=== PATIENT | female | born 2000 | race Two or more races ===

== ENCOUNTER 2024-06-01 08:51 | Emergency (ER) | payer MEDICAID, SELFPAY ==
[2024-06-01 09:18] VITALS: BP 128/85; PULSE 78; RESP 16; TEMP 36.8; O2SAT 100; BMI 30.4
--- NOTE | 2024-06-01 09:20 | XR_ITS ---
Examination: Complete OB ultrasound, less than 14 weeks, transabdominal Date and time of exam: June 01, 1999 2510 0 1:00 AM INDICATIONS: Vaginal bleeding and pelvic pain today Technique: Obstetrical ultrasound images less than 14 weeks performed via transabdominal imaging Findings: Uterus 9.1 cm Intrauterine gestational sac 1.4 cm correspondences 6 weeks 2 days gestational age No pole No cardiac activity Right ovary 4.7 cm arterial flow Left ovary 3.5 cm arterial flow IMPRESSION: Intrauterine gestational sac corresponding to 6 weeks 2 days gestational age No pole, no cardiac activity Recommend transvaginal pelvic sonography follow-up
--- NOTE | 2024-06-01 09:21 | PD.EDVAGBL ---
ED OB Contraction Preg RMI/HPI General Chief complaint: Vaginal Bleeding Stated complaint: Vaginal bleeding X 2 days, 7 weeks OB Time Seen by Provider: 06/01/24 09:23 Source: patient Arrival date/time: 06/01/24 08:51 24-year-old female with no known medical history presents to the emergency room with a chief complaint of vaginal spotting and bilateral pelvic pain x 2 days. Patient is currently 7 weeks . She is a G6, P3. Mode of arrival: ambulatory Limitations: no limitations Related Data Home Medications ?Medication ?Instructions ?Recorded ?Confirmed vit no.95-ferrous 1 tab PO QDAY 04/07/19 08/18/19 fumarate 28 mg-folic acid 800 mcg tablet () Allergies Allergy/AdvReac Type Severity Reaction Status Date / Time chicken derived Allergy Intermediate Hives Verified 12/22/21 15:35 Review of Systems Review of Systems Systems Reviewed: All systems reviewed, normal except as documented Constitutional Constitutional: Reports system reviewed and no additional complaints, except as documented, Denies fatigue, Denies fever(s), Denies headache(s) and Denies weakness Eyes Eyes: Reports system reviewed and no additional complaints, except as documented, Denies blurry vision and Denies change in vision ENT Ears, Nose, Mouth, and Throat: Reports system reviewed and no additional complaints, except as documented, Denies otalgia, Denies headache(s), Denies nasal congestion, Denies throat swelling and Denies vertigo Cardiovascular Cardiovascular: Reports system reviewed and no additional complaints, except as documented, Denies chest pain, Denies dyspnea and Denies dyspnea on exertion Respiratory Respiratory: Reports system reviewed and no additional complaints, except as documented, Denies chest congestion, Denies cough, Denies dyspnea, Denies dyspnea on exertion and Denies wheezing Gastrointestinal Gastrointestinal: Reports system reviewed and no additional complaints, except as documented, Denies abdominal pain, Denies cramping, Denies nausea and Denies vomiting Genitourinary Genitourinary: Reports system reviewed and no additional complaints, except as documented, Reports abnormal vaginal bleeding and Reports pelvic pain Musculoskeletal Musculoskeletal: Reports system reviewed and no additional complaints, except as documented and Denies back pain Integumentary/Breasts Skin/Breast: Reports system reviewed and no additional complaints, except as documented and Denies wounds Neurologic Neurologic: Reports system reviewed and no additional complaints, except as documented, Denies confusion, Denies headache(s), Denies lack of coordination, Denies vertigo and Denies weakness Psychiatric Psychiatric: Reports system reviewed and no additional complaints, except as documented, Denies anxiety, Denies confusion, Denies depression, Denies paranoia, Denies suicidal ideation and Denies tactile hallucinations Endocrine Endocrine: Reports system reviewed and no additional complaints, except as documented and Denies fatigue Hematologic/Lymphatic Hematologic/Lymphatic: Reports system reviewed and no additional complaints, except as documented and Denies lymphadenopathy Allergic/Immunologic Allergic/Immunologic: Reports system reviewed and no additional complaints, except as documented, Denies throat swelling, Denies urticaria and Denies wheezing Past Medical History Past Medical History NEUROLOGIC: Negative Neurological Disorders CARDIAC: Negative Cardiac Disorders or Congestive Heart Failure RESPIRATORY: Negative Chronic Obstructive Pulmonary Disease (COPD) GASTROINTESTINAL: Negative Gastrointestinal Disorders, Hepatitis or Colorectal Cancer GENITOURINARY: Negative Genitourinary Disorders, Renal Disease or Prostate Cancer REPRODUCTIVE: Positive Previous Pregnancies (x2 PREVIOUS PREGNANCIES); Negative Breast Cancer, Endometriosis, Genital Herpes, Gonorrhea, Pelvic Inflammatory Disease, Syphilis, Testicular Cancer or Uterine Prolapse MUSCULOSKELETAL: Negative Musculoskeletal Disorders or Bone Cancer ENDOCRINE: Negative Endocrine Disorders, Diabetes Mellitus Type 1 or Diabetes Mellitus Type 2 HEMATOLOGIC: Negative Blood Disorders PSYCHO/SOCIAL: Positive Depression and Anxiety; Negative Psychiatric Problems, Schizophrenia, Recreational Drug Use, Self-Mutilation, Attention Deficit Disorder, Attention Deficit Hyperactivity Disorder, Depression, Post Traumatic Stress Disorder or Eating Disorder OTHER HISTORY: Negative Hospitalization, Autoimmune Disease, Down Syndrome, Autism, Developmental Delay, Shingles, Falls, Blood Transfusions, Blood Transfusion Reaction, Anesthesia Reactions, Organ Transplant, Chemotherapy, Radiation Therapy, Hyperbaric Therapy, MRSA, VRSA, Vancomycin-Resistant Enterococci, Human Immunodeficiency Virus (HIV), Chicken Pox, Measles, Mumps, Rubella (Chinese Measles), Pertussis, Clostridium Difficile, Cancer, Breast Cancer, Cervical Cancer, Colorectal Cancer, Lung Cancer, Ovarian Cancer, Prostate Cancer or Testicular Cancer Family History FAMILY HISTORY: Negative Family Psychiatric Problems, Family Respiratory Disorders, Family Cardiac Disorders, Family Gastrointestinal Problems, Family Cancer, Family Surgery or Family Anesthesia Reaction Surgical History SURGICAL: Negative Cardiac Surgery, Section or Organ Transplant Social History SMOKING STATUS: Never smoker SUBSTANCE USE: does not use ED Exam General Limitations: Present no limitations General appearance: Present alert and in no apparent distress Head Head exam: Present atraumatic Eye Eye exam: Present normal appearance, PERRL and EOMI ENT ENT exam: Present normal exam, normal oropharynx and mucous membranes moist Neck Neck exam: Present normal inspection, full ROM and trachea midline Chest Chest inspection: Present normal inspection and symmetric chest wall rise Respiratory Respiratory exam: Present normal lung sounds bilaterally Cardiovascular Cardiovascular exam: Present regular rate, normal rhythm and normal heart sounds Abdominal Exam Abdominal exam: Present soft, tenderness and normal bowel sounds; Absent Ho's sign or tenderness at McBurney's Point Abdominal tenderness: Present RLQ, LLQ and mild Extremities Exam Extremities exam: Present normal inspection and full ROM Back Exam Back exam: Present normal inspection and full ROM Neurological Exam Neurological exam: Present alert, oriented X3 and CN II-XII intact Psychiatric Psychiatric exam: Present normal affect and normal mood Skin Skin exam: Present warm, dry, intact and normal color Course Quality Measures none Orders Category Date Time Status US OB <= 14 weeks fetus Stat Exams 06/01/24 09:20 Completed ABO/RH Type Stat Lab 06/01/24 09:49 Completed Beta HCG,Quantitative Stat Lab 06/01/24 09:49 Completed CBC Stat Lab 06/01/24 09:49 Completed CMP [Comprehensive Metabolic Panel] Stat Lab 06/01/24 09:49 Completed UA [Urinalysis] Stat Lab 06/01/24 10:11 Completed Vital Signs Vital signs: Vital Signs Temperature 98.2 F 06/01/24 09:18 Pulse Rate 78 06/01/24 09:18 Respiratory Rate 16 06/01/24 09:18 Blood Pressure 128/85 H 06/01/24 09:18 Pulse Oximetry (%) 100 06/01/24 09:18 Oxygen Delivery Method Room Air 06/01/24 09:18 O2 saturation 100% within normal limits Vaginal Bleeding MDM Narrative MDM Narrative: 24-year-old female with no known medical history presents to the emergency room with a chief complaint of vaginal spotting and bilateral pelvic pain x 2 days. Patient is currently 7 weeks . She is a G6, P3. Patient is hemodynamically stable and in no apparent distress. Physical examination shows 2 out of 10 bilateral pelvic pain, cramping. Patient states her bleeding is only when she wipes, and there is a brownish color. There are no clots. Patient states she has been unable to see her LOCAL [employer] and states her first appointment is in 3 weeks. hCG levels are 29,184. Ultrasound was completed and shows a gestational sac corresponding to 6 weeks and 2 days. There was no tone and no cardiac activity present. Our radiologist recommends repeat transvaginal pelvic sonography in the next 48 to 72 hours. Patient was discharged and educated to follow-up with her LOCAL [employer]. Patient was educated that she if she is unable to get an appointment with her LOCAL [employer] to return to the emergency room for repeat blood work and a repeat ultrasound. Patient data External records reviewed:: [facility] previous records Clinical information provided by:: patient Social determinants that could affect healthcare access:: none Patient has the following chronic illnesses:: No chronic illness How is presenting disease/condition affected by chronic disease/condition?: no chronic disease Evaluation data The following diagnostics were reviewed and interpreted by me:: lab results and radiology exam(s) Lab and/or radiology exams considered but not ordered:: Labs and radiology exams considered and ordered Interpretation Summary: Ultrasound OB-Findings: Uterus 9.1 cm Intrauterine gestational sac 1.4 cm correspondences 6 weeks 2 days gestational age No pole No cardiac activity Right ovary 4.7 cm arterial flow Left ovary 3.5 cm arterial flow IMPRESSION: Intrauterine gestational sac corresponding to 6 weeks 2 days gestational age No pole, no cardiac activity Recommend transvaginal pelvic sonography follow-up Medications / Prescriptions Medications or Prescriptions considered but not ordered:: No medication given Medication administrations:: No medication given Consultations Consultation(s) initiated? (list below): No Diagnosis Vaginal Bleeding Differential Diagnosis: missed , threatened , dysfunctional uterine bleeding, incomplete , ectopic without intrauterine , vaginal bleeding and other (Spontaneous /vaginal bleeding/ectopic ) Most likely diagnosis given after review of the tests above:: Threatened Admission Indicated Admission indicated?: not indicated Admission Request Was there a request for admission?: No Disposition Plan Disposition Plan: Discharge Discharge Attestation Discharge Attestation: The patient and all family members were given an opportunity to ask questions and understood the discharge instructions. Discharge instructions specifically effects, indications for sooner follow up or return to the emergency department, and the expected course of current diagnosis. Patient condition: Stable Discharge Plan Plan Patient Disposition: HOME (Self Care) Disposition Comment: Stable Prescriptions/Referrals Prescriptions/Med Rec: No Action PNV cmb#95-ferrous fumarate-FA [] 28 mg iron- 800 mcg Tablet 1 tab PO QDAY Referrals: No Primary/Family,Physician [Primary Care Provider] - In 1 week Problem List Clinical Impression: Vaginal bleeding affecting early Patient/Caregiver Discharge Instructions Education Materials: Bleeding During Early Additional Instructions: Please follow-up with your LOCAL [employer] in the next 24 to 48 hours. Our radiologist recommends short-term follow-up in the next 48 to 72 hours. For any evidence of worsening signs or symptoms return to the emergency room immediately Print Language: Moldovan Stand Alone Forms: Marie Award Info., Patient Portal Info Letter PA/CHERRY GROWER Supervising Physician PA/ADRYAN Supervising Physician: Dr. JACOBS
[2024-06-01 10:09] LABS: Basophils % (Auto) 0 % (0-2.5); Eosinophils # (Auto) 0.2 Thou/mm3 (0.0-0.5); Eosinophils % (Auto) 2 % (0-10); Hemoglobin 13.1 g/dL (12.0-16.0); Immature Granulocytes % (Auto) 0 % (0-0); Immature Granulocytes Auto 0.03 Thou/mm3 (0.00-0.00); Lymphocytes # (Auto) 1.9 Thou/mm3 (1.0-4.8); Lymphocytes % (Auto) 22 % (10-50); Mean Corpuscular HGB Conc 33.6 g/dl (31.0-37.0); Mean Corpuscular Volume 89 fL (80-100); Monocytes # (Auto) 0.5 Thou/mm3 (0.0-0.8); Monocytes % (Auto) 5 % (0-12); Neutrophils # (Auto) 6.2 Thou/mm3 (1.8-7.7); Neutrophils % (Auto) 71 % (37-80); Nucleated Red Blood Cell % 0 /100 WBC (0); Platelet Count 291 Thou/mm3 (140-440); RDW Standard Deviation 43.2 fL (36.4-46.3); Red Blood Count 4.36 Miln/mm3 (4.00-5.20); White Blood Count 8.8 Thou/mm3 (3.6-11.0)
[2024-06-01 10:19] LABS: Collection Type, Urine Clean Catch
[2024-06-01 10:28] LABS: Bilirubin,Urine Negative (Negative); Blood,Urine 2+ (Negative); Clarity,Urine Clear (Clear/Hazy); Color,Urine Lt-Yellow (Lt Yel-Yel); Glucose, Urine Negative (Negative); Ketones,Urine Negative (Negative); Leukocyte Esterase,Urine Positive (Negative); Nitrite,Urine Negative (Negative); PH,Urine 6.5 (5.0-7.0); Protein,Urine Negative (Neg - Trace); RBC,Urine 3 /hpf (0-3); Specific Gravity,Urine 1.025 (1.001-1.035); Squamous Epithelial Cell,Urine 9 /hpf (0-5); Urobilinogen,Urine Negative mg/dL (0.0-1.0); WBC,Urine 3 /hpf (0-5)
[2024-06-01 10:31] LABS: Alanine Aminotransferase 17 U/L (10-49); Albumin, Serum 4.6 gm/dL (3.5-5.0); Albumin/Globulin Ratio 1.6 (1.2-2.2); Alkaline Phosphatase 74 U/L (46-116); Anion Gap 7 (7-16); Aspartate Amino Transferase 16 U/L (0-34); BUN/Creatinine Ratio 18 Ratio (12-20); Bilirubin,Total 0.3 mg/dL (0.3-1.2); Blood Urea Nitrogen 11 mg/dL (9-23); Chloride 103 mMol/L (98-107); Creatinine (Component) 0.6 mg/dL (0.6-1.3); Estimated Creatinine Clearance 145.7 mL/min (>60); Globulin 2.8 gm/dL (2.3-3.5); Glucose 98 mg/dL (74-106); Osmolality,Calculated 271 (275-295); Potassium 4.1 mMol/L (3.4-5.1); Sodium 136 mMol/L (136-145); Total Protein 7.4 gm/dL (5.7-8.2); eGFR > 60 See Note
[2024-06-01 11:04] LABS: Beta HCG,Quantitative 29184 mIU/mL (<5.0)
== END 2024-06-01 11:55 | disposition home or self-care (01) ==
PROVIDERS: Nurse Practitioner Family; Emergency Provider Emergency Medicine
DX: O20.9 Hemorrhage in early pregnancy, unspecified (principal); Z3A.01 Less than 8 weeks gestation of pregnancy
CPT/HCPCS: 36415; 76801; 80053; 81001; 84702; 85025; 86900; 86901; 99284

== ENCOUNTER 2024-06-22 09:15 | Emergency (ER) | payer MEDICAID, SELFPAY ==
[2024-06-22 09:33] VITALS: BP 119/76; PULSE 78; RESP 16; TEMP 36.8; O2SAT 98; BMI 30.2
--- NOTE | 2024-06-22 09:39 | XR_ITS ---
Examination: Complete OB ultrasound, less than 14 weeks, transabdominal Date and time of exam: June 22, 2019 5:10 AM Indications: Pelvic pain and vaginal bleeding beginning yesterday Technique: Obstetrical ultrasound images less than 14 weeks performed via transabdominal imaging Findings: A normal shaped single intrauterine gestation is present in the uterus. pole 2.5 cm corresponds to 9 weeks 1 day gestational age Cardiac motion 155 BPM Adjacent subchorionic hemorrhage 19 x 7 mm Ultrasonographic survey of visible and placental structures unremarkable. Amniotic fluid volume appears appropriate for this estimated gestational age. Right ovary 3.2 cm arterial flow Left ovary 3.1 cm arterial flow. Impression: Viable intrauterine gestation 9 weeks 1 day Recommend short-term follow-up pelvic sonography given the subchorionic hemorrhage
--- NOTE | 2024-06-22 09:39 | PD.EDVAGBL ---
ED OB Contraction Preg RMI/HPI General Chief complaint: Vaginal Bleeding Stated complaint: VAGINAL DISCHARGE WITH BLOOD AT 9WKS PREG; GRAV6 Time Seen by Provider: 06/22/24 09:41 Source: patient Arrival date/time: 06/22/24 09:15 24-year-old female with no known medical history presents to the emergency room with a chief complaint of vaginal spotting and clear vaginal discharge x 1 day. Patient is currently 9 weeks . She is a G6, P3. Patient states that symptoms began after having sexual intercourse with her last night Mode of arrival: ambulatory Limitations: no limitations Related Data Home Medications ?Medication ?Instructions ?Recorded ?Confirmed vit no.95-ferrous 1 tab PO QDAY 04/07/19 08/18/19 fumarate 28 mg-folic acid 800 mcg tablet () Previous Rx's ?Medication ?Instructions ?Recorded cephalexin 500 mg capsule 500 mg PO BID 7 days #14 caps 06/22/24 Allergies Allergy/AdvReac Type Severity Reaction Status Date / Time chicken derived Allergy Intermediate Hives Verified 06/22/24 09:17 Review of Systems Review of Systems Systems Reviewed: All systems reviewed, normal except as documented Constitutional Constitutional: Reports system reviewed and no additional complaints, except as documented, Denies fatigue, Denies fever(s), Denies headache(s) and Denies weakness Eyes Eyes: Reports system reviewed and no additional complaints, except as documented, Denies blurry vision and Denies change in vision ENT Ears, Nose, Mouth, and Throat: Reports system reviewed and no additional complaints, except as documented, Denies otalgia, Denies headache(s), Denies nasal congestion, Denies throat swelling and Denies vertigo Cardiovascular Cardiovascular: Reports system reviewed and no additional complaints, except as documented, Denies chest pain, Denies dyspnea and Denies dyspnea on exertion Respiratory Respiratory: Reports system reviewed and no additional complaints, except as documented, Denies chest congestion, Denies cough, Denies dyspnea, Denies dyspnea on exertion and Denies wheezing Gastrointestinal Gastrointestinal: Reports system reviewed and no additional complaints, except as documented, Denies abdominal pain, Denies cramping, Denies nausea and Denies vomiting Genitourinary Genitourinary: Reports system reviewed and no additional complaints, except as documented, Reports abnormal vaginal bleeding, Reports pelvic pain and Reports vaginal discharge Musculoskeletal Musculoskeletal: Reports system reviewed and no additional complaints, except as documented and Denies back pain Integumentary/Breasts Skin/Breast: Reports system reviewed and no additional complaints, except as documented and Denies wounds Neurologic Neurologic: Reports system reviewed and no additional complaints, except as documented, Denies confusion, Denies headache(s), Denies lack of coordination, Denies vertigo and Denies weakness Psychiatric Psychiatric: Reports system reviewed and no additional complaints, except as documented, Denies anxiety, Denies confusion, Denies depression, Denies paranoia, Denies suicidal ideation and Denies tactile hallucinations Endocrine Endocrine: Reports system reviewed and no additional complaints, except as documented and Denies fatigue Hematologic/Lymphatic Hematologic/Lymphatic: Reports system reviewed and no additional complaints, except as documented and Denies lymphadenopathy Allergic/Immunologic Allergic/Immunologic: Reports system reviewed and no additional complaints, except as documented, Denies throat swelling, Denies urticaria and Denies wheezing Past Medical History Past Medical History NEUROLOGIC: Negative Neurological Disorders CARDIAC: Negative Cardiac Disorders or Congestive Heart Failure RESPIRATORY: Negative Chronic Obstructive Pulmonary Disease (COPD) GASTROINTESTINAL: Negative Gastrointestinal Disorders, Hepatitis or Colorectal Cancer GENITOURINARY: Negative Genitourinary Disorders, Renal Disease or Prostate Cancer REPRODUCTIVE: Positive Previous Pregnancies (x2 PREVIOUS PREGNANCIES); Negative Breast Cancer, Endometriosis, Genital Herpes, Gonorrhea, Pelvic Inflammatory Disease, Syphilis, Testicular Cancer or Uterine Prolapse MUSCULOSKELETAL: Negative Musculoskeletal Disorders or Bone Cancer ENDOCRINE: Negative Endocrine Disorders, Diabetes Mellitus Type 1 or Diabetes Mellitus Type 2 HEMATOLOGIC: Negative Blood Disorders PSYCHO/SOCIAL: Positive Depression and Anxiety; Negative Psychiatric Problems, Schizophrenia, Recreational Drug Use, Self-Mutilation, Attention Deficit Disorder, Attention Deficit Hyperactivity Disorder, Depression, Post Traumatic Stress Disorder or Eating Disorder OTHER HISTORY: Negative Hospitalization, Autoimmune Disease, Down Syndrome, Autism, Developmental Delay, Shingles, Falls, Blood Transfusions, Blood Transfusion Reaction, Anesthesia Reactions, Organ Transplant, Chemotherapy, Radiation Therapy, Hyperbaric Therapy, MRSA, VRSA, Vancomycin-Resistant Enterococci, Human Immunodeficiency Virus (HIV), Chicken Pox, Measles, Mumps, Rubella (Polish Measles), Pertussis, Clostridium Difficile, Cancer, Breast Cancer, Cervical Cancer, Colorectal Cancer, Lung Cancer, Ovarian Cancer, Prostate Cancer or Testicular Cancer Family History FAMILY HISTORY: Negative Family Psychiatric Problems, Family Respiratory Disorders, Family Cardiac Disorders, Family Gastrointestinal Problems, Family Cancer, Family Surgery or Family Anesthesia Reaction Surgical History SURGICAL: Negative Cardiac Surgery, Section or Organ Transplant Social History SMOKING STATUS: Never smoker SUBSTANCE USE: does not use ED Exam General Limitations: Present no limitations General appearance: Present alert and in no apparent distress Head Head exam: Present atraumatic Eye Eye exam: Present normal appearance, PERRL and EOMI ENT ENT exam: Present normal exam, normal oropharynx and mucous membranes moist Neck Neck exam: Present normal inspection, full ROM and trachea midline Chest Chest inspection: Present normal inspection and symmetric chest wall rise Respiratory Respiratory exam: Present normal lung sounds bilaterally Cardiovascular Cardiovascular exam: Present regular rate, normal rhythm and normal heart sounds Abdominal Exam Abdominal exam: Present soft, tenderness and normal bowel sounds Abdominal tenderness: Present RLQ, LLQ and mild Extremities Exam Extremities exam: Present normal inspection and full ROM Back Exam Back exam: Present normal inspection and full ROM Neurological Exam Neurological exam: Present alert, oriented X3 and CN II-XII intact Psychiatric Psychiatric exam: Present normal affect and normal mood Skin Skin exam: Present warm, dry, intact and normal color Course Quality Measures none Orders Category Date Time Status US OB <= 14 weeks fetus Stat Exams 06/22/24 09:39 Completed ABO/RH Type Stat Lab 06/22/24 11:16 Completed Beta HCG,Quantitative Stat Lab 06/22/24 11:16 Completed CBC Stat Lab 06/22/24 11:16 Completed CMP [Comprehensive Metabolic Panel] Stat Lab 06/22/24 11:16 Completed UA [Urinalysis] Stat Lab 06/22/24 10:22 Completed Vital Signs Vital signs: Vital Signs Temperature 98.3 F 06/22/24 09:33 Pulse Rate 78 06/22/24 09:33 Respiratory Rate 16 06/22/24 09:33 Blood Pressure 119/76 06/22/24 09:33 Pulse Oximetry (%) 98 06/22/24 09:33 Oxygen Delivery Method Room Air 06/22/24 09:33 O2 saturation 98% within normal limits Vaginal Bleeding MDM Narrative MDM Narrative: 24-year-old female with no known medical history presents to the emergency room with a chief complaint of vaginal spotting and clear vaginal discharge x 1 day. Patient is currently 9 weeks . She is a G6, P3. Patient states that symptoms began after having sexual intercourse with her last night Patient is hemodynamically stable and in no apparent distress Physical examination shows a soft nontender abdomen there is no pelvic pain bilaterally. Patient is complaining of vaginal spotting when she wipes and clear vaginal discharge. Ultrasound OB was completed and shows a subchorionic bleed with a viable at 9 weeks 1 day and heart tones at 155 bpm Patient was educated to follow-up with her MATH INSTRUCTOR in the next 24 to 48 hours and return to the emergency room for any evidence of worsening signs or symptoms Patient data External records reviewed:: [facility] previous records Clinical information provided by:: patient Social determinants that could affect healthcare access:: none Patient has the following chronic illnesses:: No chronic illness How is presenting disease/condition affected by chronic disease/condition?: no chronic disease Evaluation data The following diagnostics were reviewed and interpreted by me:: lab results and radiology exam(s) Lab and/or radiology exams considered but not ordered:: Labs and radiology exams considered and ordered Interpretation Summary: Ultrasound OB-Findings: A normal shaped single intrauterine gestation is present in the uterus. pole 2.5 cm corresponds to 9 weeks 1 day gestational age Cardiac motion 155 BPM Adjacent subchorionic hemorrhage 19 x 7 mm Ultrasonographic survey of visible and placental structures unremarkable. Amniotic fluid volume appears appropriate for this estimated gestational age. Right ovary 3.2 cm arterial flow Left ovary 3.1 cm arterial flow. Impression: Viable intrauterine gestation 9 weeks 1 day Recommend short-term follow-up pelvic sonography given the subchorionic hemorrhage Medications / Prescriptions Medications or Prescriptions considered but not ordered:: No medication given Medication administrations:: No medication given Consultations Consultation(s) initiated? (list below): No Diagnosis Vaginal Bleeding Differential Diagnosis: threatened , dysfunctional uterine bleeding, ectopic without intrauterine , vaginal bleeding and other (Subchorionic hemorrhage) Most likely diagnosis given after review of the tests above:: Subchorionic hemorrhage Admission Indicated Admission indicated?: not indicated Admission Request Was there a request for admission?: No Disposition Plan Disposition Plan: Discharge Discharge Attestation Discharge Attestation: The patient and all family members were given an opportunity to ask questions and understood the discharge instructions. Discharge instructions specifically effects, indications for sooner follow up or return to the emergency department, and the expected course of current diagnosis. Patient condition: Stable Discharge Plan Plan Patient Disposition: HOME (Self Care) Disposition Comment: Stable Prescriptions/Referrals Prescriptions/Med Rec: New cephalexin 500 mg capsule 500 mg PO BID 7 Days Qty: 14 0RF No Action PNV cmb#95-ferrous fumarate-FA [] 28 mg iron- 800 mcg Tablet 1 tab PO QDAY Referrals: No Primary/Family,Physician [Primary Care Provider] - In 1 week Problem List Clinical Impression: Subchorionic hemorrhage in first trimester, Urinary tract infection Patient/Caregiver Discharge Instructions Education Materials: Bleeding During Early , ED CYSTITIS Female Adult Additional Instructions: Please follow-up with your primary care provider or your MATH INSTRUCTOR in the next 24 to 48 hours. The ultrasound that was completed shows a subchorionic bleed At this time the ultrasound shows a viable at 9 weeks and 1 day with heart tones at 160 bpm For any evidence of worsening signs or symptoms please return to the emergency room immediately Print Language: Emirati Stand Alone Forms: Marie Award Info., Patient Portal Info Letter PA/LOADING UNIT OPERATOR POWDER CHARGING Supervising Physician PA/ADRYAN Supervising Physician: Dr. Eduardo
[2024-06-22 10:39] LABS: Collection Type, Urine Clean Catch
[2024-06-22 10:52] LABS: Bacteria,Urine 1+; Bilirubin,Urine Negative (Negative); Blood,Urine 1+ (Negative); Clarity,Urine Turbid (Clear/Hazy); Color,Urine Yellow (Lt Yel-Yel); Glucose, Urine Negative (Negative); Ketones,Urine Negative (Negative); Leukocyte Esterase,Urine Positive (Negative); Nitrite,Urine Negative (Negative); Protein,Urine Trace (Neg - Trace); RBC,Urine 4 /hpf (0-3); Specific Gravity,Urine 1.029 (1.001-1.035); Squamous Epithelial Cell,Urine 9 /hpf (0-5); Urobilinogen,Urine Negative mg/dL (0.0-1.0); WBC,Urine 34 /hpf (0-5)
[2024-06-22 11:39] LABS: Basophils % (Auto) 0 % (0-2.5); Eosinophils # (Auto) 0.2 Thou/mm3 (0.0-0.5); Eosinophils % (Auto) 2 % (0-10); Hematocrit 38.4 % (36.0-46.0); Hemoglobin 13.1 g/dL (12.0-16.0); Immature Granulocytes % (Auto) 0 % (0-0); Immature Granulocytes Auto 0.02 Thou/mm3 (0.00-0.00); Lymphocytes % (Auto) 25 % (10-50); Mean Corpuscular HGB Conc 34.1 g/dl (31.0-37.0); Mean Corpuscular Hemoglobin 30.2 pg (25.0-35.0); Mean Corpuscular Volume 89 fL (80-100); Monocytes # (Auto) 0.3 Thou/mm3 (0.0-0.8); Monocytes % (Auto) 4 % (0-12); Neutrophils # (Auto) 5.6 Thou/mm3 (1.8-7.7); Neutrophils % (Auto) 69 % (37-80); Nucleated Red Blood Cell % 0 /100 WBC (0); Platelet Count 250 Thou/mm3 (140-440); Red Blood Count 4.34 Miln/mm3 (4.00-5.20); White Blood Count 8.1 Thou/mm3 (3.6-11.0)
[2024-06-22 12:05] LABS: Alanine Aminotransferase 13 U/L (10-49); Albumin, Serum 4.4 gm/dL (3.5-5.0); Albumin/Globulin Ratio 1.6 (1.2-2.2); Alkaline Phosphatase 62 U/L (46-116); Anion Gap 8 (7-16); Aspartate Amino Transferase 17 U/L (0-34); BUN/Creatinine Ratio 10 Ratio (12-20); Bilirubin,Total 0.4 mg/dL (0.3-1.2); Blood Urea Nitrogen 6 mg/dL (9-23); Calcium 9.4 mg/dL (8.3-10.6); Calcium (Corrected) 9.4 mg/dL (8.5-10.1); Chloride 104 mMol/L (98-107); Creatinine (Component) 0.6 mg/dL (0.6-1.3); Estimated Creatinine Clearance 145.4 mL/min (>60); Globulin 2.7 gm/dL (2.3-3.5); Glucose 89 mg/dL (74-106); Osmolality,Calculated 270 (275-295); Potassium 4.1 mMol/L (3.4-5.1); Sodium 137 mMol/L (136-145); Total Protein 7.1 gm/dL (5.7-8.2); eGFR > 60 See Note
[2024-06-22 12:44] LABS: Beta HCG,Quantitative 95882 mIU/mL (<5.0)
== END 2024-06-22 13:31 | disposition home or self-care (01) ==
PROVIDERS: Nurse Practitioner Family; Emergency Provider Emergency Medicine
DX: O20.8 Other hemorrhage in early pregnancy (principal); Z3A.09 9 weeks gestation of pregnancy; O23.41 Unspecified infection of urinary tract in pregnancy, first trimester; N39.0 Urinary tract infection, site not specified
CPT/HCPCS: 36415; 76801; 80053; 81001; 84702; 85025; 86900; 86901; 99284

== ENCOUNTER 2024-07-25 23:34 | Emergency (ER) | payer MEDICAID, SELFPAY ==
[2024-07-25 23:35] VITALS: BMI 30.4
[2024-07-25 23:50] VITALS: BP 119/80; PULSE 77; RESP 18; TEMP 36.8; O2SAT 97
--- NOTE | 2024-07-26 00:05 | XR_ITS ---
Examination: Complete OB ultrasound greater than 14 weeks Date and time of exam: July 26, 2024 0030 hours INDICATIONS: Pelvic cramping and vaginal bleeding beginning one hour ago Findings: Viable intrauterine single fetus with single amniotic sac presentation breech Cardiac motion 133 BPM Placenta posterior grade 1 no abruption Umbilical cord insertion not seen Amniotic fluid index 5.8 cm Cervix 2.9 cm closed Right ovary 2.6 cm arterial flow Left ovary 2.6 cm arterial flow Composite estimated gestational age based on BPD, head circumference, abdominal circumference, femur length is 14 weeks 2 days Estimated weight 92.6 g. Survey of intracranial anatomy, spinal anatomy, abdominal anatomy, four-chamber heart performed with no abnormalities identified. Impression: Viable intrauterine gestation breech presentation.
[2024-07-26 00:31] LABS: Collection Type, Urine Clean Catch
[2024-07-26 00:33] LABS: Basophils % (Auto) 0 % (0-2.5); Eosinophils # (Auto) 0.3 Thou/mm3 (0.0-0.5); Eosinophils % (Auto) 2 % (0-10); Hematocrit 35.9 % (36.0-46.0); Hemoglobin 12.7 g/dL (12.0-16.0); Immature Granulocytes % (Auto) 0 % (0-0); Immature Granulocytes Auto 0.04 Thou/mm3 (0.00-0.00); Lymphocytes # (Auto) 3.2 Thou/mm3 (1.0-4.8); Lymphocytes % (Auto) 26 % (10-50); Mean Corpuscular HGB Conc 35.4 g/dl (31.0-37.0); Mean Corpuscular Hemoglobin 30.9 pg (25.0-35.0); Mean Corpuscular Volume 87 fL (80-100); Monocytes # (Auto) 0.6 Thou/mm3 (0.0-0.8); Monocytes % (Auto) 5 % (0-12); Neutrophils % (Auto) 66 % (37-80); Nucleated Red Blood Cell % 0 /100 WBC (0); Platelet Count 251 Thou/mm3 (140-440); RDW Standard Deviation 39.8 fL (36.4-46.3); Red Blood Count 4.11 Miln/mm3 (4.00-5.20); White Blood Count 12.1 Thou/mm3 (3.6-11.0)
--- NOTE | 2024-07-26 00:57 | PD.EDVAGBL ---
ED OB Contraction Preg RMI/HPI General Chief complaint: Urogenital-Female Stated complaint: 14WEEKS PREG, BLEEDING Time Seen by Provider: 07/26/24 00:04 Arrival date/time: 07/25/24 23:34 24F at approximately 14 weeks and with no significant PMH presents to ED with 2 days of vaginal spotting and pelvic cramping. Patient was here recently for this with diagnosis of subchorionic hemorrhage. Patient knows she is RH- and she got a Rhogam shot 1 month ago. Limitations: no limitations Related Data Home Medications ?Medication ?Instructions ?Recorded ?Confirmed vit no.95-ferrous 1 tab PO QDAY 04/07/19 08/18/19 fumarate 28 mg-folic acid 800 mcg tablet () Allergies Allergy/AdvReac Type Severity Reaction Status Date / Time chicken derived Allergy Intermediate Hives Verified 06/22/24 09:17 Review of Systems Review of Systems Systems Reviewed: All systems reviewed, normal except as documented Constitutional Constitutional: Reports system reviewed and no additional complaints, except as documented, Denies fever(s) and Denies headache(s) ENT Ears, Nose, Mouth, and Throat: Denies disequilibrium and Denies headache(s) Cardiovascular Cardiovascular: Reports system reviewed and no additional complaints, except as documented, Denies chest pain and Denies dyspnea Respiratory Respiratory: Reports system reviewed and no additional complaints, except as documented, Denies cough and Denies dyspnea Gastrointestinal Gastrointestinal: Reports system reviewed and no additional complaints, except as documented, Denies abdominal pain, Denies nausea and Denies vomiting Genitourinary Genitourinary: Reports as per HPI, Reports abnormal vaginal bleeding and Reports pelvic pain Neurologic Neurologic: Reports system reviewed and no additional complaints, except as documented, Denies confusion, Denies disequilibrium and Denies headache(s) Psychiatric Psychiatric: Denies confusion Past Medical History Past Medical History NEUROLOGIC: Negative Neurological Disorders CARDIAC: Negative Cardiac Disorders or Congestive Heart Failure RESPIRATORY: Negative Chronic Obstructive Pulmonary Disease (COPD) GASTROINTESTINAL: Negative Gastrointestinal Disorders, Hepatitis or Colorectal Cancer GENITOURINARY: Negative Genitourinary Disorders, Renal Disease or Prostate Cancer REPRODUCTIVE: Positive Previous Pregnancies (x2 PREVIOUS PREGNANCIES); Negative Breast Cancer, Endometriosis, Genital Herpes, Gonorrhea, Pelvic Inflammatory Disease, Syphilis, Testicular Cancer or Uterine Prolapse MUSCULOSKELETAL: Negative Musculoskeletal Disorders or Bone Cancer ENDOCRINE: Negative Endocrine Disorders, Diabetes Mellitus Type 1 or Diabetes Mellitus Type 2 HEMATOLOGIC: Negative Blood Disorders PSYCHO/SOCIAL: Positive Depression and Anxiety; Negative Psychiatric Problems, Schizophrenia, Recreational Drug Use, Self-Mutilation, Attention Deficit Disorder, Attention Deficit Hyperactivity Disorder, Depression, Post Traumatic Stress Disorder or Eating Disorder OTHER HISTORY: Negative Hospitalization, Autoimmune Disease, Down Syndrome, Autism, Developmental Delay, Shingles, Falls, Blood Transfusions, Blood Transfusion Reaction, Anesthesia Reactions, Organ Transplant, Chemotherapy, Radiation Therapy, Hyperbaric Therapy, MRSA, VRSA, Vancomycin-Resistant Enterococci, Human Immunodeficiency Virus (HIV), Chicken Pox, Measles, Mumps, Rubella ([place] Measles), Pertussis, Clostridium Difficile, Cancer, Breast Cancer, Cervical Cancer, Colorectal Cancer, Lung Cancer, Ovarian Cancer, Prostate Cancer or Testicular Cancer Family History FAMILY HISTORY: Negative Family Psychiatric Problems, Family Respiratory Disorders, Family Cardiac Disorders, Family Gastrointestinal Problems, Family Cancer, Family Surgery or Family Anesthesia Reaction Surgical History SURGICAL: Negative Cardiac Surgery, Section or Organ Transplant Social History SMOKING STATUS: Never smoker SUBSTANCE USE: does not use ED Exam General Limitations: Present no limitations General appearance: Present alert and in no apparent distress Head Head exam: Present atraumatic Eye Eye exam: Present normal appearance, PERRL and EOMI ENT ENT exam: Present normal exam, normal oropharynx and mucous membranes moist Neck Neck exam: Present normal inspection, full ROM and trachea midline Chest Chest inspection: Present normal inspection and symmetric chest wall rise Respiratory Respiratory exam: Present normal lung sounds bilaterally Cardiovascular Cardiovascular exam: Present regular rate, normal rhythm and normal heart sounds Abdominal Exam Abdominal exam: Present soft and normal bowel sounds Extremities Exam Extremities exam: Present normal inspection and full ROM Back Exam Back exam: Present normal inspection and full ROM Neurological Exam Neurological exam: Present alert, oriented X3 and CN II-XII intact Psychiatric Psychiatric exam: Present normal affect and normal mood Skin Skin exam: Present warm, dry, intact and normal color Course Quality Measures none Orders Category Date Time Status US OB >= 14 weeks Fetus Stat Exams 07/26/24 00:05 Taken Beta HCG,Quantitative Stat Lab 07/26/24 00:17 Completed CBC Stat Lab 07/26/24 00:17 Completed CMP [Comprehensive Metabolic Panel] Stat Lab 07/26/24 00:17 Completed Urinalysis, C/S if Indicated Stat Lab 07/26/24 00:17 Completed Urine Culture Stat Lab 07/26/24 00:17 Received Vital Signs Vital signs: Vital Signs Temperature 98.2 F 07/25/24 23:50 Pulse Rate 77 07/25/24 23:50 Respiratory Rate 18 07/25/24 23:50 Blood Pressure 119/80 07/25/24 23:50 Pulse Oximetry (%) 97 07/25/24 23:50 Oxygen Delivery Method Room Air 07/25/24 23:50 O2 at 97% on RA and WNLs Vaginal Bleeding MDM Narrative MDM Narrative: 24F at approximately 14 weeks and with no significant PMH presents to ED with 2 days of vaginal spotting and pelvic cramping. Patient was here recently for this with diagnosis of subchorionic hemorrhage. Patient knows she is RH- and she got a Rhogam shot 1 month ago. Physical exam reveals non-distressed female. Patient is afebrile, calm, and alert. Mild leukocytosis. Beta HCG WNLs. US normal IUP with normal FHRs. UA contaminated but contains sperm. Patient confirms bleeding started after recent sexual intercourse. Cytogenetics Technologist given. Patient data External records reviewed:: [facility] previous records Clinical information provided by:: patient Social determinants that could affect healthcare access:: none Patient has the following chronic illnesses:: none How is presenting disease/condition affected by chronic disease/condition?: no chronic disease Evaluation data The following diagnostics were reviewed and interpreted by me:: lab results and radiology exam(s) Lab and/or radiology exams considered but not ordered:: ordered Interpretation Summary: above Medications / Prescriptions Medications or Prescriptions considered but not ordered:: not ordered Medication administrations:: n/a Consultations Consultation(s) initiated? (list below): No Diagnosis Vaginal Bleeding Differential Diagnosis: missed , threatened , dysfunctional uterine bleeding, menometrorrhagia, incomplete , ectopic without intrauterine and vaginal bleeding Most likely diagnosis given after review of the tests above:: vaginal bleeding Admission Indicated Admission indicated?: not indicated Admission Request Was there a request for admission?: No Disposition Plan Disposition Plan: Discharge Discharge Attestation Discharge Attestation: The patient and all family members were given an opportunity to ask questions and understood the discharge instructions. Discharge instructions specifically effects, indications for sooner follow up or return to the emergency department, and the expected course of current diagnosis. Patient condition: Stable Discharge Plan Plan Patient Disposition: HOME (Self Care) Disposition Comment: Stable Prescriptions/Referrals Prescriptions/Med Rec: No Action ASIF cmb#95-ferrous fumarate-FA [] 28 mg iron- 800 mcg Tablet 1 tab PO QDAY Referrals: Jimbo Ruvalcaba MD [Primary Care Provider] - In 1 week Problem List Clinical Impression: Vaginal bleeding Patient/Caregiver Discharge Instructions Additional Instructions: Please follow-up with PCP/OBGYN within 24-48 hours and return immediately if symptoms worsen. Print Language: Indonesian Stand Alone Forms: Patient Portal Info Letter PA/DIRECTOR OF DIRECT MARKETING Supervising Physician PA/DIRECTOR OF DIRECT MARKETING Supervising Physician: Dr. Wade
[2024-07-26 01:01] LABS: Albumin, Serum 4.2 gm/dL (3.5-5.0); Albumin/Globulin Ratio 1.5 (1.2-2.2); Alkaline Phosphatase 57 U/L (46-116); Anion Gap 7 (7-16); Aspartate Amino Transferase 12 U/L (0-34); BUN/Creatinine Ratio 10 Ratio (12-20); Bilirubin,Total 0.3 mg/dL (0.3-1.2); Blood Urea Nitrogen 6 mg/dL (9-23); Calcium 9.3 mg/dL (8.3-10.6); Calcium (Corrected) 9.3 mg/dL (8.5-10.1); Carbon Dioxide 26.1 mMol/L (20.0-31.0); Chloride 107 mMol/L (98-107); Creatinine (Component) 0.6 mg/dL (0.6-1.3); Estimated Creatinine Clearance 145.7 mL/min (>60); Globulin 2.8 gm/dL (2.3-3.5); Glucose 100 mg/dL (74-106); Osmolality,Calculated 277 (275-295); Potassium 3.6 mMol/L (3.4-5.1); Sodium 140 mMol/L (136-145); eGFR > 60 See Note
[2024-07-26 01:02] LABS: Bilirubin,Urine Negative (Negative); Blood,Urine 3+ (Negative); Clarity,Urine Turbid (Clear/Hazy); Color,Urine Lt-Yellow (Lt Yel-Yel); Glucose, Urine Negative (Negative); Ketones,Urine Negative (Negative); Leukocyte Esterase,Urine Positive (Negative); Nitrite,Urine Negative (Negative); Protein,Urine Trace (Neg - Trace); RBC,Urine 402 /hpf (0-3); Specific Gravity,Urine 1.023 (1.001-1.035); Squamous Epithelial Cell,Urine 5 /hpf (0-5); Urobilinogen,Urine Negative mg/dL (0.0-1.0); WBC,Urine 13 /hpf (0-5)
[2024-07-26 01:07] LABS: Alanine Aminotransferase < 7 U/L (10-49)
[2024-07-26 01:32] LABS: Beta HCG,Quantitative 59287 mIU/mL (<5.0)
[2024-07-26 01:33] LABS: Culture Indicated,Urine Yes; Sperm,Urine Present
--- NOTE | 2024-07-26 04:07 | PC.NURSE ---
WE HAD DOWN TIME FROM [id number].
== END 2024-07-26 04:11 | disposition home or self-care (01) ==
PROVIDERS: Physician Assistant; Emergency Provider Emergency Medicine; PCP Family Medicine
DX: O20.8 Other hemorrhage in early pregnancy (principal); Z3A.14 14 weeks gestation of pregnancy
CPT/HCPCS: 36415; 76805; 80053; 81001; 84702; 85025; 86900; 86901; 87086; 99284

== ENCOUNTER 2025-01-06 16:51 | Inpatient (IN) | payer MEDICAID, SELFPAY ==
[2025-01-06] VITALS (57 sets, daily range): BP systolic 104–123; BP diastolic 58–71; PULSE 80–102; RESP 18; TEMP 36.4–36.7; O2SAT 95–99; BMI 32.1
--- NOTE | 2025-01-06 18:13 | PD.LDHP ---
Documentation for date of: 01/06/25 OB Labor/Induct. HPI History of Present Illness History of present illness: H and P dictated on STAT line in [facility] #9 : [id number] Labs Labs: Positive: Rubella Titre, Negative: RPR, Hepatitis B, HIV, Chlamydia, Gonorrhea and Group Beta Strep and Unknown: Herpes Type 1, Herpes Type 2 and Covid-19 Meds Home Medications and Allergies Home Medications ?Medication ?Instructions ?Recorded ?Confirmed ?Type vit no.95-ferrous 1 tab PO QDAY 04/07/19 08/18/19 History fumarate 28 mg-folic acid 800 mcg tablet () Allergies Allergy/AdvReac Type Severity Reaction Status Date / Time chicken derived Allergy Intermediate Hives Verified 06/22/24 09:17 OB Exam Physical Exam Vital signs: Pulse BP 86 117/71 01/06/25 17:40 01/06/25 17:40 OB Results Labs 01/06/25 17:30
[2025-01-06 18:15] LABS: Basophils # (Auto) 0.0 Thou/mm3 (0.0-0.2); Basophils % (Auto) 0 % (0-2.5); Eosinophils # (Auto) 0.2 Thou/mm3 (0.0-0.5); Eosinophils % (Auto) 2 % (0-10); Hematocrit 34.5 % (36.0-46.0); Hemoglobin 11.4 g/dL (12.0-16.0); Immature Granulocytes Auto 0.06 Thou/mm3 (0.00-0.00); Lymphocytes # (Auto) 2.5 Thou/mm3 (1.0-4.8); Lymphocytes % (Auto) 20 % (10-50); Mean Corpuscular HGB Conc 33.0 g/dl (31.0-37.0); Mean Corpuscular Hemoglobin 28.8 pg (25.0-35.0); Mean Corpuscular Volume 87 fL (80-100); Monocytes # (Auto) 0.7 Thou/mm3 (0.0-0.8); Monocytes % (Auto) 6 % (0-12); Neutrophils # (Auto) 8.7 Thou/mm3 (1.8-7.7); Neutrophils % (Auto) 71 % (37-80); Nucleated Red Blood Cell # 0.00 Thou/mm3 (0.00-0.00); Nucleated Red Blood Cell % 0 /100 WBC (0); Platelet Count 316 Thou/mm3 (140-440); RDW Standard Deviation 48.0 fL (36.4-46.3); Red Blood Count 3.96 Miln/mm3 (4.00-5.20); White Blood Count 12.2 Thou/mm3 (3.6-11.0)
[2025-01-06 18:40] LABS: Syphilis Nonreactive (Nonreactive)
[2025-01-06] MEDS: OXYTOCIN in NS 30 units 30 UNIT/500 ML BAG IV (21:36)
[2025-01-07] VITALS (144 sets, daily range): BP systolic 87–139; BP diastolic 52–78; PULSE 68–138; RESP 16–18; TEMP 36.5–36.9; O2SAT 89–100
--- NOTE | 2025-01-07 07:06 | PD.LDPN ---
Documentation for date of: 01/07/25 OB Labor Progress Note Pain Control Comments: Epidural Pelvic Exam Dilation (cm): 7 Effacement (%): 90 station: -1 Amniotic membrane status: Ruptured Comments: Clear fluid Cervix well applied to the head Contractions Monitor mode: External Contraction frequency: 2-5 Contraction pattern: Coupling Contraction intensity: Mild Status status: Category l Assessment and Plan Comments: Anticipate
[2025-01-07] MEDS: OXYTOCIN in NS 20 units 20 UNIT/1,000 ML BAG 125 UNIT IV (09:00)
--- NOTE | 2025-01-07 09:15 | PD.LDDS ---
DS: Providers Provider Date of admission: 01/06/25 16:51 Primary care physician: Physician No Primary/Family Admitting Provider: Jhonny Valdes MD Attending Provider on Admission: Jhonny Valdes MD Attending Provider on DC: Jhonny Valdes MD Discharging Provider: Jhonny Valdes MD DS: Diagnosis Problem List Completed Was Problem List Reviewed/Reconciled?: Yes Summary/Hosp Course Brief History: H and P dictated on STAT line in [facility] #9 : [id number] Peripartum Data Delivery Method: Normal Vaginal Delivery 1: Gender: Male Time Spent with Patient Time attestation: Total time spent providing and/or coordinating discharge services: Exam Vital Signs Temp Pulse Resp BP Pulse Ox O2 Del Method 98.1 F 90 17 125/66 100 Room Air 01/07/25 07:26 01/07/25 09:11 01/07/25 07:26 01/07/25 09:11 01/07/25 08:56 01/07/25 04:00 Discharge Plan Plan Patient Disposition: HOME (Self Care) Patient condition on transfer: Stable Prescriptions/Referrals Prescriptions/Med Rec: New ibuprofen 600 mg tablet 600 mg PO QID PRN (Reason: pain) Qty: 30 0RF hydrocodone-acetaminophen 5-325 mg tablet 1 tab PO Q6H MDD 4 PRN (Reason: pain) Qty: 7 0RF Continued PNV no.95-ferrous fumarate-FA [] 28 mg iron- 800 mcg Tablet 1 tab PO QDAY Referrals: No Primary/Family,Physician [Primary Care Provider] Patient/Caregiver Discharge Instructions Discharge Activity: activity as tolerated Other Discharge Activity Instructions:: Follow up office 6 weeks. Education Materials: After a Vaginal , Understanding Blues, Nutrition While Print Language: Thai Stand Alone Forms: Marie Award Info., Patient Portal Info Letter, Work/Release Restrictions Discharge Order Discharge Orders: Discharge (Routine); Ordered 01/08/25 Ordered By: Jhonny Valdes Planned Discharge Date 01/08/25
[2025-01-07] MEDS: IBUPROFEN TAB 400 MG TABLET 800 MG PO (12:55)
[2025-01-07 14:11] LABS: Basophils # (Auto) 0.0 Thou/mm3 (0.0-0.2); Basophils % (Auto) 0 % (0-2.5); Eosinophils # (Auto) 0.1 Thou/mm3 (0.0-0.5); Eosinophils % (Auto) 1 % (0-10); Hematocrit 33.4 % (36.0-46.0); Hemoglobin 10.6 g/dL (12.0-16.0); Immature Granulocytes Auto 0.05 Thou/mm3 (0.00-0.00); Lymphocytes # (Auto) 2.1 Thou/mm3 (1.0-4.8); Lymphocytes % (Auto) 16 % (10-50); Mean Corpuscular HGB Conc 31.7 g/dl (31.0-37.0); Mean Corpuscular Hemoglobin 28.2 pg (25.0-35.0); Mean Corpuscular Volume 89 fL (80-100); Monocytes # (Auto) 0.5 Thou/mm3 (0.0-0.8); Monocytes % (Auto) 4 % (0-12); Neutrophils # (Auto) 11.0 Thou/mm3 (1.8-7.7); Neutrophils % (Auto) 79 % (37-80); Nucleated Red Blood Cell # 0.00 Thou/mm3 (0.00-0.00); Nucleated Red Blood Cell % 0 /100 WBC (0); Platelet Count 263 Thou/mm3 (140-440); RDW Standard Deviation 48.6 fL (36.4-46.3); Red Blood Count 3.76 Miln/mm3 (4.00-5.20); White Blood Count 13.8 Thou/mm3 (3.6-11.0)
[2025-01-07] MEDS: HYDROcodone/APAP 5/325 TABLET 2 TAB PO (19:49)
[2025-01-08] VITALS (7 sets, daily range): BP systolic 93–125; BP diastolic 56–80; PULSE 78–84; RESP 15–19; TEMP 36.4–36.7; O2SAT 98–100
--- NOTE | 2025-01-08 06:49 | ESPR_ITS ---
RE: CHARLI ARMSTRONG : 2000 DATE OF SERVICE: 01/08/2025 day number 1. The patient denies any problem or complaint. She is voiding and ambulating and tolerating regular diet and passing flatus. She denies any excessive vaginal bleeding. She denies any dizziness or lightheadedness. She denies any chest pain, palpitations, shortness of breath or lower extremity pain. OBJECTIVE: Vital Signs: Blood pressure 93/56, heart rate 84, respirations 16, temperature is 97.5, pulse oximetry is 98% on room air. Lungs: Clear to auscultation bilaterally. Heart: Regular rate and rhythm. Abdomen: Fundus is firm. Extremities: Nontender. Hemoglobin pre-delivery is 11.4, post delivery is 10.6. ASSESSMENT: day number 1, status post spontaneous vaginal delivery. PLAN: Discharge home when baby is cleared. Discharge instructions given. Follow up in the office in 6 weeks. DT: 06:25:44 TT: 06:48:00 Ref: [id number] - TID: [id number]
[2025-01-08] MEDS: IBUPROFEN TAB 400 MG TABLET 800 MG PO (09:28)
--- NOTE | 2025-01-08 10:45 | PC.SS ---
CHAR HOUSE SUPERVISOR conducted bedside contact with the patient to address nursing referral indicating patient possessed history of anxiety and depression.? CHAR HOUSE SUPERVISOR introduced self and role. CHAR HOUSE SUPERVISOR reviewed basis of referral.? Patient confirmed history of anxiety and depression.? Patient stated that mood disorder present during adolescence.? At this time patient was involved in counseling and prescribed medication.? Patient is not currently involved with mental health services.? Patient describes no impairment with daily functioning.? Patient informed CHAR HOUSE SUPERVISOR that if symptoms arise she possesses ability to access resources to address concern.? , Elvis; is the patient?s 4th child.? Infant delivered naturally.? Patient plans on combo feeding infant.? OB services provided by Dr. Valdes.? Patient states consistency with OB appointments.? Patient is receiving WIC and SNAP.? Patient is not receiving TANF.? Patient denies history of alcohol/drug abuse.? Patient denies CWS intervention.? Patient denies episodes of domestic violence.? Patient has access to appropriate supplies and equipment.? FOB, Rizwan Jorgensen will be involved in the rearing of the . FOB will provide transportation upon discharge.? Patient describes possessing support system consisting of FOB and family.? No further intervention required at this time, social worker clinical will be available to address any further concerns.? CHAR HOUSE SUPERVISOR updated bedside nurse.?
--- NOTE | 2025-01-08 11:10 | ESHP_ITS ---
RE: CHARLI ARMSTRONG : 2000 DATE OF ADMISSION: 01/06/2025 HISTORY OF PRESENT ILLNESS: This is a 24-year-old 6 para 3-2-0-5 with intrauterine of 38 weeks and 3 days, who presents for induction of labor for intrauterine growth restriction. The patient had an ultrasound showing growth at the 10th percentile. She denies any leaking or bleeding. She reports normal movement. She reports occasional contractions. ALLERGIES: NO KNOWN DRUG ALLERGIES. MEDICATIONS: 1. multivitamin 1 p.o. daily. 2. Omeprazole 20 mg 1 p.o. daily. 3. Ferrous sulfate 325 mg 1 p.o. daily. SOCIAL HISTORY: She denies any alcohol or drug use or smoking. PAST MEDICAL HISTORY: Gastroesophageal reflux disease, iron deficiency anemia, depression, anxiety, and Rh negative. OBSTETRIC HISTORY: 2013, 20 weeks, spontaneous AB, no D and C, complicated by demise; 2015, 36 weeks, normal vaginal delivery, 5 pound 12 ounce female, labor; 2016, 19 weeks, spontaneous vaginal delivery, complicated by demise, normal vaginal delivery; 2019, 40-week normal vaginal delivery, 7 pound 3 ounce female, no complications; and 2022, 40- week normal vaginal delivery, 7 pound 4 ounce female, no complications. REVIEW OF SYSTEMS: She denies any chest pain, palpitations, cough, fever, shortness of breath or lower extremity pain. She denies any headache, change in vision or right upper quadrant pain. PAST SURGICAL HISTORY: Denies. PHYSICAL EXAMINATION: VITAL SIGNS: Blood pressure 119/78, heart rate 88, respirations 18, and temperature is 98.6. HEENT: Oropharynx and sclerae are clear. LUNGS: Clear to auscultation bilaterally. HEART: Regular rate and rhythm. ABDOMEN: Gravid term size consistent with estimated weight 6 pounds. PELVIC: See RN notes. EXTREMITIES: Nontender. SKIN: No gross rashes or lesions. NEUROLOGIC: No focal deficit. ASSESSMENT AND PLAN: Intrauterine at 38 weeks and 3 days, intrauterine growth restriction, induction of labor. Anticipate spontaneous vaginal delivery. Informed consent was obtained. The patient was made aware of the risks, complications, alternatives, and benefits of the proposed procedure and she agrees. She is aware of the risk of operative vaginal delivery and delivery and agrees with these modes of delivery if indicated. DT: 16:48:33 TT: 19:02:00 Ref: [id number] - TID: [id number] MTDD
--- NOTE | 2025-01-08 16:50 | PC.SS ---
SHAREMILKER met with patient. Patient cleared by SHAREMILKER. Bedside nurse updated.
--- NOTE | 2025-01-20 10:00 | OBDSUM_ITS ---
Data ([facility]) Data Hx Section: No : 6 Term: 1 : 1 Livin Abortions: Spontaneous & Theraputic: 2 Delivery Data ([facility]) Labor Data Initiation of labor: Induction Induction/Augmentation Agent: Pitocin ROM date: 01/07/25 ROM time: 08:15 Amniotic membrane rupture type: Artificial Amniotic fluid description: Clear Delivery Data Onset of labor date: 01/07/25 Onset of labor time: 06:10 Complete dilation date: 01/07/25 Complete dilation time: 08:34 delivery date: 01/07/25 delivery time: 08:52 Placenta delivery date: 01/07/25 Placenta delivery time: 08:58 Stage 1 total time: Labor - Stage 1 Duration 2 hours and 24 minutes Delivered by: Jhonny Valdes Delivery nurse: Bianka Dong RN [place] nurse: Bianka Dong RN Regulatory Compliance Director at delivery: No Support person(s) at delivery: FOB Other staff at delivery: Tr Reilly RN Delivery Method Delivery method: Normal Vaginal Delivery Presentation: Vertex Anesthesia Type Anesthesia Type: Epidural Placenta Placenta delivery description: Spontaneous cord blood collection: Cord Blood Type Episiotomy Episiotomy description: None Umbilical Cord cord description: 3 Vessels Jackson Data ([facility]) Data order: 1 's gender: Male Identification band number: [id number] weight (gms): 6 lb 4.884 oz Weight (pounds): 6 lbs and 4.9 ozs Jackson length: 19.88 in 1 minute: 9 5 minutes: 9
== END 2025-01-08 14:15 | disposition home or self-care (01) | DRG 560 ==
LOC: S4SX 01-08 07:54 → S4NX 01-08 07:54
PROVIDERS: Admitting Provider Specialist; Visit Provider Specialist
DX: O36.5930 Maternal care for other known or suspected poor fetal growth, third trimester, not applicable or unspecified (principal); Z37.0 Single live birth; Z3A.38 38 weeks gestation of pregnancy
CPT/HCPCS: 36415; 59409; 85025; 85461; 86780; 86850; 86900; 86901; 86923; 94762; J2590; J2790; J2795; J3010; A9270